=== PATIENT | male | born 1945 | race Two or more races ===

== ENCOUNTER 2019-02-23 20:54 | Inpatient (IN) | payer MEDICARE, OTHER ==
[~2019-02-23] VITALS: Ht 167.6 cm; Wt 75.7 kg
--- NOTE | 2019-02-23 21:02 | NUR ---
BIBFAMILY FROM HOME. TO ER BED 8. AAOX4. NO RESP DISTRESS NOTED, EVEN AND UNLABORED BREATHING. AMBULATORY. C/O SLURRED SPEECH AND UNSTEADY GAIT. AT BEDSIDE, REPORTS PT NOTED AT 7PM TALKING LIKE A DRUNK PER AND WALKING WITH A LIMP. UPON ASSESSMENT, NOTED R FACIAL DROOP. MD AT BEDSIDE FOR EVAL. CODE STROKE INITIATED.
[2019-02-23] MEDS ORDERED: CT SWABBABLE VALVE TRANS SET 1 EA INFUS.SET MC ONE (21:09)
[2019-02-23] MEDS ORDERED: IOHEXOL-350 100 ML VIAL IV ONE (21:09)
[2019-02-23] MEDS ORDERED: IV NS 0.9% 250 ML IV ONE (21:09)
--- NOTE | 2019-02-23 21:09 | NUR ---
PT TAKEN TO CT VIA RSERAFIN.
[2019-02-23 21:18] LABS: BASOPHILS % (AUTO) 0.5 % (0.0-2.0); EOSINOPHILS % (AUTO) 1.7 % (0.0-6.0); HEMATOCRIT 49 % (39-51); HEMOGLOBIN 16.7 g/dL (13.5-17.5); LYMPHOCYTES # (AUTO) 2.7 /CMM (0.8-4.8); LYMPHOCYTES % (AUTO) 31.5 % (20.0-44.0); MEAN CORPUSCULAR HGB CONC 34 g/dl (31.0-36.0); MEAN CORPUSCULAR VOLUME 87 fL (80-96); MONOCYTES # (AUTO) 0.7 /CMM (0.1-1.30); MONOCYTES % (AUTO) 7.7 % (2.0-12.0); NEUTROPHILS % (AUTO) 58.6 % (43.0-81.0); PLATELET COUNT (AUTO) 236 /CMM (150-450); RED BLOOD CELL COUNT(AUTO) 5.69 MIL/uL (4.5-6.0); WHITE BLOOD COUNT (AUTO) 8.5 K/uL (4.3-11.0)
[2019-02-23 21:26] LABS: CALCIUM, SERUM 9.6 mg/dL (8.5-10.1); CARBON DIOXIDE 29 mmol/L (21-32); CHLORIDE 96 mmol/L (98-107); CREATININE 1.7 mg/dL (0.6-1.3); GLUCOSE 201 mg/dL (74-106); POTASSIUM 3.7 mmol/L (3.5-5.1); SODIUM SERUM 138 mmol/L (136-145); UREA NITROGEN, BLOOD 23 mg/dL (7-18)
[2019-02-23 21:32] LABS: ALANINE AMINOTRANSFERASE 38 U/L (12-78); ALBUMIN 4.2 g/dL (3.4-5.0); ALKALINE PHOSPHATASE 73 U/L (46-116); ASPARTATE AMINOTRANSFERASE 17 U/L (15-37); BILIRUBIN,DIRECT 0.1 mg/dL (0.0-0.2); BILIRUBIN,TOTAL 0.5 mg/dL (0.2-1.0); TOTAL PROTEIN, SERUM 7.9 g/dL (6.4-8.2)
--- NOTE | 2019-02-23 21:40 | NUR ---
ROBERT RODRIGUES AT BEDSIDE
--- NOTE | 2019-02-23 21:47 | NUR ---
2104: CODE STROKE ACTIVATED 2107: IV LINE ON L AC 18G. BLLOD DRAWN AND GIVEN TO TECH AT BEDSIDE. 2108: PT ENROUTE TO CT. 2112: CT W/O CONTRAST 2114: HEAD CTA 2119: CXR 2120: BACK TO UNIT
[2019-02-23 21:56] LABS: CHOLESTEROL 192 mg/dL (<200); HDL CHOLESTEROL 31 mg/dL (40-60); LDL 134 mg/dL (0-99); TRIGLYCERIDES 219 mg/dL (30-150)
[2019-02-23] MEDS ORDERED: ASPIRIN 325 MG TABLET PO ONE (22:00)
[2019-02-23] MEDS ORDERED: ASPIRIN 325 MG TABLET ONE (22:04)
[2019-02-23] MEDS ORDERED: HYDROCODONE/APAP 5/325MG 1 EACH TABLET PO PRN (22:30)
[2019-02-23] MEDS ORDERED: ONDANSETRON HCL/PF 4 MG/2 ML VIAL IVP PRN (22:30)
[2019-02-23] MEDS ORDERED: MORPHINE SULFATE INJ 2 MG/ML DISP.SYRIN IV PRN (22:30)
[2019-02-23] MEDS ORDERED: ZOLPIDEM TARTRATE 5 MG TABLET PO PRN (22:30)
[2019-02-23] MEDS ORDERED: MAGNESIUM HYDROXIDE 30 ML UDC PO PRN (22:30)
[2019-02-23] MEDS ORDERED: DEXTROSE 50%-WATER 50 ML DISP.SYRIN IV PRN (22:30)
[2019-02-23] MEDS ORDERED: MAG HYDROX/AL HYDROX/SIMETH 30 ML UDC PO PRN (22:30)
[2019-02-23] MEDS ORDERED: CLONIDINE HCL 0.1 MG TABLET PO PRN (22:30)
[2019-02-23] MEDS ORDERED: ACETAMINOPHEN 325 MG TABLET PO PRN (22:30)
--- NOTE | 2019-02-23 22:55 | NUR ---
REPORT GIVEN TO SAL JANSEN FOR JOSE. PT TO 114-1
[2019-02-23] MEDS ORDERED: IV NS 0.9% 1,000 ML IV PRN (23:00)
[2019-02-23] MEDS ORDERED: ATORVASTATIN 40 MG TABLET PO SCH (23:00)
--- NOTE | 2019-02-23 23:29 | NUR ---
PT TRANSPORTED TO UNIT ON [facility] W/ 2 RN AT BEDSIDE W/ ACLS PROTOCOL. NAD NOTED DURING TRANSPORT. PT AMBULATED FROM [facility] TO BED
[2019-02-23 23:47] LABS: APPEARANCE,URINE CLEAR (CLEAR); BILIRUBIN,URINE NEGATIVE (NEGATIVE); BLOOD, URINE TRACE-INTA Ery/uL (NEGATIVE); COLOR,URINE YELLOW (YELLOW); KETONES,URINE NEGATIVE (NEGATIVE); LEUKOCYTE ESTERASE ,URINE NEGATIVE (NEGATIVE); NITRITE, URINE NEGATIVE (NEGATIVE); PH,URINE 7.5 (5.0-8.0); PROTEIN,URINE NEGATIVE (NEGATIVE); UGLUCOSE TRACE mg/dL (NEGATIVE); UROBILINOGEN,URINE 0.2 EU/dL (0.2)
[2019-02-23 23:55] LABS: RBC,URINE 0-2 /HPF (0-2); WBC,URINE 0-2 /HPF (0-3)
[2019-02-23 23:56] LABS: BACTERIA,URINE Few /HPF (None Seen); SQUAMOUS EPITHELIAL CELL,UR Rare /HPF (None Seen)
--- NOTE | 2019-02-24 | NUR ---
YARD CLEANER NOTE: RECEIVED PATIENT FROM ER, WITH NO ACUTE DISTRESS NOTED. PATIENT ABLE TO WAKE TO BE WITHOUT DIFFICULTY. STROKE ASSESSMENT COMPLETE. IV TO LAC IN PLACE. BREATHING EVEN AND UNLABORED, NO SOB NOTED TELE READING SR 70. ORIENTED PATIENT/FAMILY TO ROOM AND USE OF CALL LIGHT. BED LOCKED AND IN LOWEST POSITION, CALL LIGHT IN REACH. WILL CONTINUE.
[2019-02-24] MEDS ORDERED: BROM3DRO OP (01:09)
[2019-02-24] MEDS ORDERED: CLOP75TA15 PO (01:09)
[2019-02-24] MEDS ORDERED: AMLO5TAB4 PO (01:09)
[2019-02-24] MEDS ORDERED: ASPI-1169 PO (01:09)
[2019-02-24] MEDS ORDERED: HYDR12.5 PO (01:09)
[2019-02-24] MEDS ORDERED: PRED5DRO16 LEFTEYE (01:09)
[2019-02-24] MEDS ORDERED: METF-441 PO (01:09)
[2019-02-24] MEDS ORDERED: BESI5DRO LEFTEYE (01:09)
--- NOTE | 2019-02-24 01:30 | NUR ---
MANAGER COMMERCIAL SALES NOTE: PATIENT HOME MEDICATIONS ENTERED INTO SYSTEM AND MASTICATOR ISSAC TEMPLETON INFORMED FOR MEDICATIONS TO BE REVIEWED. WILL CONTINUE TO MONITOR.
--- NOTE | 2019-02-24 06:20 | NUR ---
TOURIST ESCORT NOTE: PATIENT RESTING IN BED, WITH NO ACUTE DISTRESS NOTED. BREATHING EVEN AND UNLABORED, NO SOB NOTED TELE READING SR 70. IV TO LAC IN PLACE, INFUSING NS AT 75ML/HR. PATIENT BLOOD SUGAR LEVEL 160ML/HR, TO RECEIVE 2 UNITS OF INSULIN PER SLIDING SCALE. NO S/S OF HYPER/HYPOGLYCEMIA NOTED. BED LOCKED AND IN LOWEST POSITION, CALL LIGHT IN REACH. WILL ENDORSE TO DAY NURSE TO CONTINUE WITH PLAN OF CARE. Addendum: 02/24/19 at 0733 by MELISSA LORENZ RN INSULIN HELD AT THIS TIME PATIENT TO BE SEEN BY GREENHOUSE MANAGER FIRST. WILL CONTINUE TO MONITOR.
[2019-02-24] MEDS: BLOOD SUGAR DIAGNOSTIC 1 EACH STRIP IN SCH ×4 (06:55→22:19)
--- NOTE | 2019-02-24 07:30 | NUR ---
AWNINGS MECHANIC AM NOTE: RECEIVED PATIENT IN BED, AT BEDSIDE, AO X 4, [place] SPEAKING, ON ROOM AIR, NOT IN ANY DISTRESS, NO SOB, SR ON HR 76 ON TELE MONITOR, LEFT AC G 18 WITH NS AT 75 ML/HR INFUSING WELL, SITE CLEAR. DENIES ANY PAIN OR DISCOMFORT AT THIS TIME, AMBULATORY, NPO FOR SWALLOW EVAL, OTHERWISE, CARDIAC DIET, CALL LIGHT WITHIN REACH, PLAN OF CARE DISCUSSED WITH AND PATIENT, VERBALIZED UNDERSTANDING, BED LOCKED AND IN LOWEST POSITION, CALL LIGHT IN REACH. WILL CONTINUE TO MONITOR.
[2019-02-24] MEDS: INSULIN REGULAR, HUMAN 100 UNIT/ML 3 ML VIAL SQ PRN ×4 (07:32→22:40)
[2019-02-24 07:49] LABS: BASOPHILS # (AUTO) 0.1 /CMM (0.0-0.2); BASOPHILS % (AUTO) 0.6 % (0.0-2.0); EOSINOPHILS % (AUTO) 1.4 % (0.0-6.0); HEMATOCRIT 44 % (39-51); HEMOGLOBIN 15.3 g/dL (13.5-17.5); LYMPHOCYTES # (AUTO) 1.9 /CMM (0.8-4.8); LYMPHOCYTES % (AUTO) 20.2 % (20.0-44.0); MEAN CORPUSCULAR HGB CONC 35 g/dl (31.0-36.0); MEAN CORPUSCULAR VOLUME 85 fL (80-96); MONOCYTES # (AUTO) 0.7 /CMM (0.1-1.30); MONOCYTES % (AUTO) 7.9 % (2.0-12.0); NEUTROPHILS # (AUTO) 6.5 /CMM (1.8-8.9); NEUTROPHILS % (AUTO) 69.9 % (43.0-81.0); PLATELET COUNT (AUTO) 199 /CMM (150-450); RED BLOOD CELL COUNT(AUTO) 5.17 MIL/uL (4.5-6.0); WHITE BLOOD COUNT (AUTO) 9.2 K/uL (4.3-11.0)
[2019-02-24 08:00] VITALS: BP 145/85
[2019-02-24 08:00] LABS: ALANINE AMINOTRANSFERASE 31 U/L (12-78); ALBUMIN 3.4 g/dL (3.4-5.0); ALKALINE PHOSPHATASE 60 U/L (46-116); ASPARTATE AMINOTRANSFERASE 13 U/L (15-37); BILIRUBIN,TOTAL 0.4 mg/dL (0.2-1.0); CALCIUM, SERUM 8.5 mg/dL (8.5-10.1); CARBON DIOXIDE 24 mmol/L (21-32); CHLORIDE 99 mmol/L (98-107); CREATININE 1.2 mg/dL (0.6-1.3); GLUCOSE 157 mg/dL (74-106); PHOSPHORUS 3.3 mg/dL (2.5-4.9); POTASSIUM 3.4 mmol/L (3.5-5.1); SODIUM SERUM 136 mmol/L (136-145); TOTAL PROTEIN, SERUM 6.5 g/dL (6.4-8.2); UREA NITROGEN, BLOOD 22 mg/dL (7-18)
[2019-02-24 08:05] LABS: MAGNESIUM 0.9 mg/dL (1.8-2.4)
--- NOTE | 2019-02-24 08:11 | NUR ---
RN NOTES MAGNESIUM 0.9, RELAYED TO DR. MURPHY, ORDERED 4 BAGS MAGNESIUM. WILL CARRY OUT
[2019-02-24 08:27] LABS: THYROID STIMULATING HORMONE 1.372 uIU/mL (0.358-3.74)
[2019-02-24] MEDS: ASPIRIN 81 MG TAB.CHEW PO SCH (08:39)
[2019-02-24] MEDS: CLOPIDOGREL BISULFATE 75 MG TABLET PO SCH (08:40)
[2019-02-24] MEDS: PANTOPRAZOLE 40 MG TABLET.DR PO SCH (08:43)
[2019-02-24] MEDS: Magnesium 1GM/D5W 100ML PREMIX 100 ML IV SCH ×4 (08:44→12:00)
[2019-02-24] MEDS ORDERED: AMLODIPINE BESYLATE 5 MG TABLET PO SCH (09:00)
[2019-02-24] MEDS ORDERED: BESIFLOXACIN HYDROCHLORIDE LEFTEYE SCH (09:00)
[2019-02-24] MEDS ORDERED: HYDROCHLOROTHIAZIDE 12.5 MG CAPSULE PO SCH (09:00)
[2019-02-24] MEDS ORDERED: ASPIRIN 81 MG TAB.CHEW PO SCH (09:00)
[2019-02-24] MEDS ORDERED: POTASSIUM CHLORIDE 20 MEQ TAB.PRT.SR PO SCH (09:30)
--- NOTE | 2019-02-24 09:30 | NUR ---
MS RN NOTES DUE MEDS GIVEN
[2019-02-24] MEDS: prednisoLONE ACET 1% OPHT DROP 5 ML BOTTLE LEFTEYE SCH ×2 (11:03→16:37)
[2019-02-24 12:00] VITALS: BP 147/77
--- NOTE | 2019-02-24 12:03 | NUR ---
MS RN NOTES ACCUCHECK DONE. BS 247 MG/DL. 4 UNITS HUM R GIVEN PER SS
--- NOTE | 2019-02-24 13:19 | NUR ---
MS RN NOTES STEPHANY MORENO NOTIFIED. PATIENT HAD #2 AND #1 VERY LITTLE AMOUNT BUT ON BLADDER SCAN, PATIENT HAD 1023 ML URINE. PER STEPHANY TO GIVE FLOMAX 0.4 MG AND THEN DAILY. WILL CARRY OUT
[2019-02-24] MEDS: TAMSULOSIN 0.4 MG CAP.SR.24H PO SCH ×2 (14:06→22:19)
--- NOTE | 2019-02-24 15:09 | NUR ---
MS RN NOTES PATIENT'S C/O BLADDER DISTENTION BUT STILL COULD NOT PEE, AGREED FOR BILLINGS CATHETER INSERTION. TONY MORENO SPRAYER LEATHER NOTIFIED, AND SAID OKAY FOR BILLINGS CATH.
--- NOTE | 2019-02-24 15:25 | NUR ---
RN NOTES COLLEAGUE SAL GOODSON AT BEDSIDE FOR COUDE CATHETER INSERTION.
--- NOTE | 2019-02-24 15:35 | NUR ---
RN NOTES PLACED A CALL TO RAMANA VIEIRA FOR CONSULT AND FOR UNSUCCESSFUL COUDE CATHETER PLACEMENT. PER DR. BOLES HE WILL COME. PREPARED UROLOGIST JOHN AND 3 BILLINGS CATH ORDERED. CHARGE NURSE ALAYNA AT THE SAME TIME SPOKE WITH TONY MORENO.
[2019-02-24 16:00] VITALS: BP 164/94
--- NOTE | 2019-02-24 16:34 | NUR ---
RN NOTES ADMINISTERED MORPHINE SULFATE 2MG IV.
[2019-02-24] MEDS: BESIFLOXACIN HYDROCHLORIDE LEFTEYE SCH (16:37)
--- NOTE | 2019-02-24 16:37 | NUR ---
TEXTED DR. LOBATO FOR MRI APPROVAL.
--- NOTE | 2019-02-24 17:00 | NUR ---
DR. BOLES NOTIFIED AGAIN PATIENT IN A LOT FO DISCOMFORT AND FAMILY AGITATED NO INTERVENTION IS BEING DONE,PER UROLOGIST "DO NOT DO BLADDER SCAN ANYMORE,THERE IS NOTHING YOU CAN DO,I WILL BE THERE TONIGHT TO PLACE UROLOGY TRAY".EXPLAINE TO FAMILY.
--- NOTE | 2019-02-24 17:28 | NUR ---
MS RN NOTES INITIALLY CALLED FOR RAPID RESPONSE FOR PATIENT WITH SEVERE DISCOMFORT.
--- NOTE | 2019-02-24 17:28 | NUR ---
PATIENT FAMILY AGITATED/PATIENT DIAPHORETIC 10/10 PAIN SCALE PER PATIENT V/S 170/91,RAPID RESPONSE CALLED.
--- NOTE | 2019-02-24 17:30 | NUR ---
STEPHANY MORENO MADE AWARE AND ORDERED ANOTHER DOSE OF FLOMAX AND DOESNOT WANT TO ORDER PAINMEDS ANYMORE.
--- NOTE | 2019-02-24 17:49 | NUR ---
RN NOTES UNSUCCESSFUL COUDE CATHETER PLACEMENT PER KORI ICU CHARGE NURSE TONY NURSING DIRECTOR CARDIOVASCULAR AT BEDSIDE.
--- NOTE | 2019-02-24 17:52 | NUR ---
ICU NURSE KORI WITH NURSING SUP,AT BEDSIDE AND TRIED COUDETTE AGAIN NO SUCCESS.AWAITS ER MD PER NURSING SUP.
--- NOTE | 2019-02-24 17:59 | NUR ---
RN NOTES PLACED ANOTHER CALL TO DR. BOLES. PER , HE IS IN ANOTHER HOSPITAL AT THE MOMENT AND WILL COME WHEN HE GETS HERE. NURSING AUTOMATIC CIGAR WRAPPER TENDER TONY NIEVES WHO JUST LEFT [facility] AND WILL COME IN A BIT.
[2019-02-24] MEDS ORDERED: TAMSULOSIN 0.4 MG CAP.SR.24H PO ONE (18:00)
--- NOTE | 2019-02-24 18:00 | NUR ---
PER NURSING HOT MOLDER CANCEL RAPID RESPONSE.
--- NOTE | 2019-02-24 18:00 | NUR ---
PER TONY (NURSING SUP)ER MD CANNOT COME TO FLOOR .
--- NOTE | 2019-02-24 18:05 | NUR ---
RN NOTES PAGED TONY MORENO NP, MADE AWARE OF THE INCIDENT.
--- NOTE | 2019-02-24 18:32 | NUR ---
RN NOTES 1319 - STEPHANY MORENO NOTIFIED. PATIENT HAD #2 AND #1 VERY LITTLE AMOUNT BUT ON BLADDER SCAN, PATIENT HAD 1023 ML URINE. PER STEPHANY TO GIVE FLOMAX 0.4 MG AND THEN DAILY. WILL CARRY OUT 1509 - PATIENT'S C/O BLADDER DISTENTION BUT STILL COULD NOT PEE, AGREED FOR BILLINGS CATHETER INSERTION. TONY MORENO TAIL WORKER NOTIFIED, AND SAID OKAY FOR BILLINGS CATH. 1513 - PER TONY MORENO, TAIL WORKER OK TO INSERT COUDE CATHETER. 1525 - COLLEAGUE HAMZAH RN AT BEDSIDE FOR COUDE CATHETER INSERTION. 1535 - PLACED A CALL TO RAMANA VIEIRA FOR CONSULT AND FOR UNSUCCESSFUL COUDE CATHETER PLACEMENT. PER DR. BOLES HE WILL COME. PREPARED UROLOGIST TRAY AND 3 BILLINGS CATH ORDERED. CHARGE NURSE ALAYNA AT THE SAME TIME SPOKE WITH TONY MORENO. 1634 - ADMINISTERED MORPHINE SULFATE 2MG IV. 1700 - DR. BOLES NOTIFIED AGAIN PATIENT IN A LOT OF DISCOMFORT AND FAMILY AGITATED NO INTERVENTION IS BEING DONE,PER UROLOGIST "DO NOT DO BLADDER SCAN ANYMORE,THERE IS NOTHING YOU CAN DO,I WILL BE THERE TONIGHT TO PLACE UROLOGY TRAY".EXPLAINED TO FAMILY. 1728 - PATIENT FAMILY AGITATED/PATIENT DIAPHORETIC 10/10 PAIN SCALE PER PATIENT V/S 171/92,RAPID RESPONSE CALLED. 1730 - STEPHANY JOSH MADE AWARE AND ORDERED ANOTHER DOSE OF FLOMAX AND DOES NOT WANT TO ORDER PAIN MEDS ANYMORE. 1749 - UNSUCCESSFUL COUDE CATHETER PLACEMENT PER KORI ICU CHARGE NURSE TONY NURSING MICROBIOLOGY PROFESSOR AT BEDSIDE. 1752 - ICU NURSE KORI WITH NURSING SUP,AT BEDSIDE AND TRIED COUDETTE AGAIN NO SUCCESS.AWAITS ERICKSON TEMPLETON PER NURSING SUP. 1759 - PLACED ANOTHER CALL TO DR. BOLES. PER , HE IS IN ANOTHER HOSPITAL AT THE MOMENT AND WILL COME WHEN HE GETS HERE. NURSING MICROBIOLOGY PROFESSOR TONY PAGED DT. HANY NIEVES WHO JUST LEFT [facility] AND WILL COME IN A BIT. 1805 - PAGED TONY MORENO TAIL WORKER, MADE AWARE OF THE INCIDENT.
--- NOTE | 2019-02-24 19:10 | NUR ---
RN NOTES PATIENT OPTED TO GO AMA. PER THEM, NO DOCTOR HAS COME TO ATTEND TO THEM FOR THE PAST 3 HOURS. NURSING DOCUMENT EXAMINER TONY MADE AWARE. CASE MANAGEMENT PIO MADE AWARE. PER FAMILY, THEY CALLED 911 TO TAKE THEM TO ANOTHER HOSPITAL.
--- NOTE | 2019-02-24 19:20 | NUR ---
RN NOTES PER PIO CASE MANAGEMENT. PER ALAYNA CHARGE NURSE, DR. BOLES IS ON HIS WAY. DR. HANY NIEVES IS ON HIS WAY WELL. SPOKE WITH ALAYNA CHARGE NURSE.
--- NOTE | 2019-02-24 19:30 | NUR ---
1930 DR. BOLES AT BEDSIDE AND PLACED BILLINGS CATHETER, PATIENT TOLERATED PROCEDURE WELL. NOTED CLEAR URINE DRAINING TO DRAINAGE BAG.
--- NOTE | 2019-02-24 19:30 | NUR ---
RN NOTES DR. BOLES ARRIVED. NOW AT PT'S BEDSIDE. REPORT GIVEN TO COLLIN HUANG FOR JOSE.
--- NOTE | 2019-02-24 19:50 | NUR ---
RN NOTE DR BOLES IS BY BEDSIDE, ORDERED MORPHINE 2MG IVP ONE TIME ONLY, ORDER TRANSCRIBED AND READ BACK, ORDER CARRIED OUT, DR BOLES INSERTED COUDE BILLINGS CATHETER, NO PAIN OR DISCOMFORT NOTED, FAMILY IS BY BEDSIDE
[2019-02-24 20:00] VITALS: BP_SYST 116; BP_SYST 149; BP_DIAS 77
[2019-02-24] MEDS ORDERED: MORPHINE SULFATE INJ 2 MG/ML DISP.SYRIN IV ONE (20:00)
--- NOTE | 2019-02-24 20:00 | NUR ---
RN NOTE ORDER MRI OF THE BRAIN WAS NOTED SCHEDULED URGENT AT 1525, CALLED IMAGING SPOKE TO GUEVARA, PER GUEVARA COORDINATOR AWAITING FOR DR LOBATO PHONE CALL TO APPROVE MRI OF THE BRAIN, CALLED TONY CUSTOM VAN CONVERTER, NOTIFIED TONY THAT PATIENT IS AWAITING FOR MRI OF THE BRAIN, PER TONY OK TO CALL DR LOBATO TO GET APPROVAL FOR MRI OF THE BRAIN, CALLED DR LOBATO AND DR LOBATO IS OUT OF TOWN, DR ARMSTRONG IS A COVERING PHYSICIAN FOR DR LOBATO, DR ARMSTRONG APPROVED MRI OF THE BRAIN, CALLED GUEVARA COORDINATOR, PER GUEVARA HE WILL SEND SPANISH SPEAKING NANNY BY 9PM WILLIE, CHARGE NURSE IS AWARE
--- NOTE | 2019-02-24 21:17 | NUR ---
RN NOTE PATIENT LEFT FOR MRI OF THE BRAIN WITHOUT CONTRAST WITH CUSTOMER SALES CONSULTANT LAKSHMI, AND CHARGE NURSE BHUPENDRA VIA WHEELCHAIR, PATIENT LEFT IN STABLE CONDITION, VITAL SIGNS STABLE, NO DISTRESS NOTED, AWAITING FOR PATIENT
[2019-02-24] MEDS: ATORVASTATIN 40 MG TABLET PO SCH (22:19)
--- NOTE | 2019-02-24 23:02 | NUR ---
RN NOTE NOTIFIED DR HAMM REGARDING MRI OF THE BRAIN RESULT, NO NEW ORDERS GIVEN, PER DOCTOR HAMM HE WILL SPEAK TO FAMILY TOMORROW
[2019-02-25 04:00] VITALS: BP 110/67
[2019-02-25 07:18] LABS: BASOPHILS % (AUTO) 0.3 % (0.0-2.0); EOSINOPHILS % (AUTO) 0.6 % (0.0-6.0); HEMATOCRIT 45 % (39-51); LYMPHOCYTES # (AUTO) 1.2 /CMM (0.8-4.8); LYMPHOCYTES % (AUTO) 12.7 % (20.0-44.0); MEAN CORPUSCULAR HGB CONC 34 g/dl (31.0-36.0); MEAN CORPUSCULAR VOLUME 85 fL (80-96); MONOCYTES # (AUTO) 0.8 /CMM (0.1-1.30); MONOCYTES % (AUTO) 8.1 % (2.0-12.0); NEUTROPHILS # (AUTO) 7.4 /CMM (1.8-8.9); NEUTROPHILS % (AUTO) 78.3 % (43.0-81.0); PLATELET COUNT (AUTO) 206 /CMM (150-450); RED BLOOD CELL COUNT(AUTO) 5.21 MIL/uL (4.5-6.0); WHITE BLOOD COUNT (AUTO) 9.4 K/uL (4.3-11.0)
[2019-02-25 07:56] LABS: ALANINE AMINOTRANSFERASE 29 U/L (12-78); ALBUMIN 3.3 g/dL (3.4-5.0); ALKALINE PHOSPHATASE 54 U/L (46-116); ASPARTATE AMINOTRANSFERASE 13 U/L (15-37); BILIRUBIN,TOTAL 0.9 mg/dL (0.2-1.0); CALCIUM, SERUM 8.6 mg/dL (8.5-10.1); CARBON DIOXIDE 24 mmol/L (21-32); CHLORIDE 98 mmol/L (98-107); CREATININE 1.6 mg/dL (0.6-1.3); GLUCOSE 190 mg/dL (74-106); MAGNESIUM 1.9 mg/dL (1.8-2.4); PHOSPHORUS 4.3 mg/dL (2.5-4.9); SODIUM SERUM 134 mmol/L (136-145); TOTAL PROTEIN, SERUM 6.6 g/dL (6.4-8.2); UREA NITROGEN, BLOOD 24 mg/dL (7-18)
[2019-02-25 08:00] VITALS: BP 130/72
--- NOTE | 2019-02-25 08:05 | NUR ---
RN OPENING NOTES PT IS AWAKE WITH AT BEDSIDE. PT DENIES ANY PAIN OR SOB AT PRESENT MOMENT. PT SHOWS NO SIGNS OF NEURAL DEFECT. PT IS MAURITANIAN SPEAKING ONLY, SPEAKS A LITTLE BIT OF HUNGARIAN. REPORT RECEIVED FROM LAYOUT WORKER RN. BED IS IN LOWEST AND LOCKED POSITION WITH CALL LIGHT IN REACH WILL CONTINUE TO MONITOR.
[2019-02-25 08:08] LABS: CREATINE KINASE, TOTAL 22 U/L (39-308)
[2019-02-25] MEDS: PANTOPRAZOLE 40 MG TABLET.DR PO SCH (08:19)
[2019-02-25] MEDS: BLOOD SUGAR DIAGNOSTIC 1 EACH STRIP IN SCH ×4 (08:19→21:25)
[2019-02-25] MEDS ORDERED: KEY,NONCONTROL,TO KEEP IN PYXI 1 EA MC ONE (08:58)
[2019-02-25] MEDS: TAMSULOSIN 0.4 MG CAP.SR.24H PO SCH ×2 (08:59→21:47)
[2019-02-25] MEDS: CLOPIDOGREL BISULFATE 75 MG TABLET PO SCH (09:00)
[2019-02-25] MEDS: ASPIRIN 81 MG TAB.CHEW PO SCH (09:00)
[2019-02-25] MEDS: INSULIN REGULAR, HUMAN 100 UNIT/ML 3 ML VIAL SQ PRN ×4 (09:01→21:45)
[2019-02-25] MEDS: BESIFLOXACIN HYDROCHLORIDE LEFTEYE SCH ×2 (09:10→17:23)
[2019-02-25] MEDS: prednisoLONE ACET 1% OPHT DROP 5 ML BOTTLE LEFTEYE SCH ×2 (09:11→17:24)
[2019-02-25] MEDS ORDERED: ACET325T53 PO (10:54)
[2019-02-25] MEDS ORDERED: INSU100V28 SQ (10:54)
[2019-02-25] MEDS ORDERED: TAMS-12 PO (10:54)
[2019-02-25] MEDS ORDERED: PANT40TA2 PO (10:54)
[2019-02-25] MEDS ORDERED: ATOR40TA PO (10:54)
--- NOTE | 2019-02-25 11:11 | NUR ---
Social service consult requested for stroke. Pt. is a pleasant Guatemalan-speaking 73-year-old male with past medical history of essential hypertension, diabetes mellitus, cataract surgery, brought into the emergency department by for evaluation of slurred speech and body weakness but eventually resolved per patient. According to the , she first noticed that the patient's speech is slurred and limping while ambulating earlier in the evening around 7 PM. Pt. is aler and oriented x 4. 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 Pt. lives with is . Pt's daughter Julieta is his emergency contact and can be reached at . Pt. was independent with his ADL's prior to admission and continues to be independent. Pt. denies any depression at this time. Pt. is full code. Advance Directives were discussed with the family. Family is requesting SNF placement at [facility].
--- NOTE | 2019-02-25 12:53 | NUR ---
PER PROPERTY MANAGEMENT SUPERVISOR PIO PT NOT A CANDIDATE FOR ARU PT WILL BE GOING TO SNF. FAMILY REQUESTING [facility].
[2019-02-25 16:00] VITALS: BP_SYST 133; BP_SYST 135; BP_DIAS 68
--- NOTE | 2019-02-25 18:45 | NUR ---
RN CLOSING NOTES PT IS A&OX4 PT DENIES ANY PAIN OR SOB. PT WILL BE DISCHARGED TO [facility] PER CM TOMORROW. PT AT BEDSIDE. PT AMBULATED ON UNIT EARLIER IN THE DAY WITHOUT INCIDENT. PT BILLINGS DRAINING BROWN URINE WITH CLEAR YELLOW URINE DRAINING INTO BAG POSSIBLE FROM RESIDUAL OF EARLIER BLOOD IN URINE WILL ENDORSE TO X RAY EQUIPMENT TESTER RN TO CONTINUE OBSERVATION.
--- NOTE | 2019-02-25 19:15 | NUR ---
MS RN OPENING NOTES PATIENT IS AWAKE, A/OX4, ABLE TO MAKE NEEDS KNOWN. FAMILY AT BEDSIDE AND ABLE TO TRANSLATE FOR PT. ON ROOM AIR, PT DENIES ANY PAIN OR SOB AT PRESENT MOMENT. PT SHOWS NO S/S OF STROKE. IV SITE LEFT WRIST, FLUSHING AND PATENT, SITE C/D/I, S/L. BILLINGS CATHETER NOTED AND OFF THE FLOOR. SAFETY MEASURES IN PLACE; BED IS IN LOWEST AND LOCKED POSITION, CALL LIGHT WITHIN REACH, SIDE RAILS UP X2. WILL CONTINUE TO MONITOR.
[2019-02-25 20:00] VITALS: BP 140/80
[2019-02-25] MEDS: ATORVASTATIN 40 MG TABLET PO SCH (21:47)
[2019-02-26 04:00] VITALS: BP 119/77
--- NOTE | 2019-02-26 06:48 | NUR ---
MS RN CLOSING NOTES PATIENT IS AWAKE, A/OX4, ABLE TO MAKE NEEDS KNOWN. SOUTH KOREAN SPEAKING. FAMILY AT BEDSIDE AND ABLE TO TRANSLATE FOR PT. ON ROOM AIR, PT DENIES ANY PAIN OR SOB AT PRESENT MOMENT. PT SHOWS NO S/S OF STROKE. IV SITE LEFT WRIST, FLUSHING AND PATENT, SITE C/D/I, S/L. BILLINGS CATHETER DRAINING TEA COLORED URINE AND OFF THE FLOOR. SAFETY MEASURES IN PLACE; BED IS IN LOW AND LOCKED POSITION, CALL LIGHT WITHIN REACH, SIDE RAILS UP X2. BILLINGS CATHETER HAD EPISODE OF BLEEDING AT SITE, PATIENT DENIES ANY PAIN, NO BLEEDING AT THE MOMENT, KEPT AREA CLEAN AND DRY. WILL ENDORSE TO AM RN FOR JSOE.
--- NOTE | 2019-02-26 07:35 | NUR ---
MS RN OPENING NOTES PATIENT RECEIVED AWAKE IN BED, A/OX4, ABLE TO MAKE NEEDS KNOWN. FAMILY AT BEDSIDE AND ABLE TO TRANSLATE FOR PT. ON ROOM AIR, PT DENIES ANY PAIN OR SOB AT PRESENT MOMENT. PT SHOWS NO S/S OF STROKE. L WRIST IV INTACT AND PATENT, SITE C/D/I, S/L. BILLINGS CATHETER NOTED AND OFF THE FLOOR. SAFETY MEASURES IN PLACE; BED IS IN LOWEST AND LOCKED POSITION, CALL LIGHT WITHIN REACH, SIDE RAILS UP X2. WILL CONTINUE TO MONITOR. Addendum: 02/26/19 at 1029 by RITU GENTILE RN DISREGARD NOTE. PLACED MISTAKENLY UNDER WRONG RN LOG IN. WILL REPLACE WITH NOTE FROM RITU GENTILE.
[2019-02-26] MEDS: BLOOD SUGAR DIAGNOSTIC 1 EACH STRIP IN SCH ×3 (07:48→17:29)
[2019-02-26] MEDS: PANTOPRAZOLE 40 MG TABLET.DR PO SCH (07:48)
[2019-02-26 08:00] VITALS: BP 131/80
[2019-02-26] MEDS: INSULIN REGULAR, HUMAN 100 UNIT/ML 3 ML VIAL SQ PRN ×3 (08:00→17:31)
[2019-02-26] MEDS ORDERED: CLOPIDOGREL BISULFATE 75 MG TABLET PO SCH (09:00)
[2019-02-26] MEDS: CLOPIDOGREL BISULFATE 75 MG TABLET PO SCH (09:20)
[2019-02-26] MEDS: ASPIRIN 81 MG TAB.CHEW PO SCH (09:20)
[2019-02-26] MEDS: TAMSULOSIN 0.4 MG CAP.SR.24H PO SCH (09:20)
[2019-02-26] MEDS: prednisoLONE ACET 1% OPHT DROP 5 ML BOTTLE LEFTEYE SCH ×2 (09:22→18:00)
[2019-02-26] MEDS: BESIFLOXACIN HYDROCHLORIDE LEFTEYE SCH ×2 (09:22→18:00)
--- NOTE | 2019-02-26 10:29 | NUR ---
MS RN OPENING NOTES PATIENT RECEIVED AWAKE IN BED, A/OX4, ABLE TO MAKE NEEDS KNOWN. FAMILY AT BEDSIDE AND ABLE TO TRANSLATE FOR PT. ON ROOM AIR, PT DENIES ANY PAIN OR SOB AT PRESENT MOMENT. PT SHOWS NO S/S OF STROKE. L WRIST IV INTACT AND PATENT, SITE C/D/I, S/L. BILLINGS CATHETER NOTED AND OFF THE FLOOR. SAFETY MEASURES IN PLACE; BED IS IN LOWEST AND LOCKED POSITION, CALL LIGHT WITHIN REACH, SIDE RAILS UP X2. WILL CONTINUE TO MONITOR.
--- NOTE | 2019-02-26 10:36 | NUR ---
MS RN NOTE 9633 ACCUCHECK MISTAKENLY SCANNED WHILE LOGGED IN UNDER SAL GONZALEZ. ACCUCHECK PERFORMED BY RITU GENTILE RN.
--- NOTE | 2019-02-26 11:00 | NUR ---
MS RN NOTE PATIENT FAMILY CONCERNED ABOUT BILLINGS CATHETER BEING LEFT INTACT POST DISCHARGE. MD NOTIFIED AND WENT BEDSIDE TO SPEAK TO FAMILY. UROLOGIST CALLED BY RN TO CONFIRM THAT BILLINGS CATHETER SHOULD REMAIN IN PLACE. BUN AND CREATININE LABS DRAWN STAT. FAMILY MADE AWARE THAT CREATININE RESULT WAS WNL. FAMILY AGREED TO BE DISCHARGED WITH BILLINGS INTACT.
[2019-02-26 12:10] LABS: *SPE A/G RATIO 1.3 (0.7-1.7); *SPE ALBUMIN 3.4 g/dL (2.9-4.4); *SPE ALPHA-1-GLOBULIN 0.2 g/dL (0.0-0.4); *SPE ALPHA-2-GLOBULIN 0.9 g/dL (0.4-1.0); *SPE BETA GLOBULIN 0.8 g/dL (0.7-1.3); *SPE GLOBULIN, TOTAL 2.7 g/dL (2.2-3.9); *SPE M-SPIKE Not Observed g/dL (Not Observed); *SPEGAMMA GLOBULIN 0.8 g/dL (0.4-1.8)
[2019-02-26 13:44] LABS: CALCIUM, SERUM 9.1 mg/dL (8.5-10.1); CARBON DIOXIDE 25 mmol/L (21-32); CHLORIDE 98 mmol/L (98-107); CREATININE 1.3 mg/dL (0.6-1.3); GLUCOSE 229 mg/dL (74-106); POTASSIUM 3.9 mmol/L (3.5-5.1); SODIUM SERUM 133 mmol/L (136-145); UREA NITROGEN, BLOOD 22 mg/dL (7-18)
[2019-02-26 14:07] LABS: PTH, INTACT 43 pg/mL (15-65)
[2019-02-26 16:00] VITALS: BP 147/74
--- NOTE | 2019-02-26 18:04 | NUR ---
MS MARKETING PRODUCER NOTE PATIENT DISCHARGED TO SNF @1802 PER MD VIA EMT TRANSPORT ON [facility]. PATIENT A/O X 4, NO SOB OR ACUTE DISTRESS NOTED. 98% O2 SATURATION ON 2 LITERS 02 VIA NASAL CANNULA. PATIENT FAMILY MEMBERS AT SIDE. ALL DISCHARGE PAPERWORK GIVEN TO EMT'S. DISCHARGE EDUCATION COMPLETED. REPORT GIVEN TO SAL PHIPPS AT [facility]. IV'S REMOVED, PATIENT CLEAN AND DRY. DISCHARGE COMPLETED WITHOUT INCIDENT.
== END 2019-02-26 18:00 | DRG 64 ==
LOC: ER 21:01 → TELE1 22:15 → MEDSG1 02-24 11:33
PROVIDERS: ADMIT Nurse Practitioner Acute Care; ATTEND Student in an Organized Health Care Education/Training Program
DX: I63.233 Cerebral infarction due to unspecified occlusion or stenosis of bilateral carotid arteries (principal); N17.0 Acute kidney failure with tubular necrosis; D68.59 Other primary thrombophilia; I63.212 Cerebral infarction due to unspecified occlusion or stenosis of left vertebral artery; E78.5 Hyperlipidemia, unspecified; I25.10 Atherosclerotic heart disease of native coronary artery without angina pectoris; N18.9 Chronic kidney disease, unspecified; I12.9 Hypertensive chronic kidney disease with stage 1 through stage 4 chronic kidney disease, or unspecified chronic kidney disease; E83.42 Hypomagnesemia; E87.6 Hypokalemia; E11.22 Type 2 diabetes mellitus with diabetic chronic kidney disease; Z79.84 Long term (current) use of oral hypoglycemic drugs; Z79.4 Long term (current) use of insulin; M50.30 Other cervical disc degeneration, unspecified cervical region; R47.81 Slurred speech; Z95.5 Presence of coronary angioplasty implant and graft; R53.1 Weakness; R29.702 NIHSS score 2
CPT/HCPCS: 36415; 70450-TC; 70496-TC; 70498-TC; 70551-TC; 71045-TC; 76770-TC; 80048-TC; 80053-TC; 80061-TC; 80076-TC; 81000-TC; 82550-TC; 82962-TC; 83735-TC; 83970; 84100-TC; 84155; 84165; 84443-TC; 84484-TC; 85025-TC; 85652-TC; 85730-TC; 87081-TC; 92526; 92611-TC; 93307-TC; 97116-TC; 97530-TC; A4217; G0378; J1815; J2270; J3475; J7030; J7050; Q9967

== ENCOUNTER 2019-03-04 22:14 | Emergency (ER) | payer MEDICARE, OTHER ==
[~2019-03-04 22:14] MED LIST: ACET325T53 PO; AMLO5TAB4 PO; ASPI-1169 PO; ATOR40TA PO; BESI5DRO LEFTEYE; BROM3DRO OP; CLOP75TA15 PO; INSU100V28 SQ; PANT40TA2 PO; PRED5DRO16 LEFTEYE; TAMS-12 PO
[2019-03-04] MEDS ORDERED: LIDOCAINE 2% JEL UROJET 10 ML MM ONE ×2 (22:45→23:00)
== END 2019-03-05 00:52 | disposition home or self-care (01) ==
DX: R33.9 Retention of urine, unspecified (principal); N32.89 Other specified disorders of bladder; I10 Essential (primary) hypertension; E11.9 Type 2 diabetes mellitus without complications; Z98.890 Other specified postprocedural states; Z79.4 Long term (current) use of insulin; Z79.82 Long term (current) use of aspirin; Z86.73 Personal history of transient ischemic attack (TIA), and cerebral infarction without residual deficits
CPT/HCPCS: 51702; 81001; 99284; J3490